=== PATIENT | male | born 1940 | race Two or more races ===

== ENCOUNTER 2017-05-07 06:00 | Outpatient (CLI) | payer OTHER ==
[~2017-05-07] VITALS: Ht 175.3 cm; Wt 72.6 kg
[2017-05-07] MEDS ORDERED: LANTUS SOL100 UNIT/1 (11:29)
[2017-05-07] MEDS ORDERED: COZAAR100 MG PO (11:29)
== END 2017-05-07 06:05 | disposition home or self-care (01) ==
LOC: LAB 06:00 → ADM 08:00 → EDSTATUS 08:00 → SURH 05-15 07:00 → EDSTATUS 05-15 08:00 → SURH 05-15 08:00
DX: Z01.812 Encounter for preprocedural laboratory examination (principal); Z01.810 Encounter for preprocedural cardiovascular examination; M17.12 Unilateral primary osteoarthritis, left knee

== ENCOUNTER 2017-09-04 15:02 | Outpatient (CLI) | payer OTHER ==
[~2017-09-04 15:02] MED LIST: COZAAR100 MG PO; LANTUS SOL100 UNIT/1
== END 2017-09-04 15:10 | disposition home or self-care (01) ==
LOC: RAD 501 15:02
DX: M79.641 Pain in right hand (principal)

== ENCOUNTER 2018-08-27 13:26 | Outpatient (CLI) | payer OTHER | END 2018-08-27 13:31 | disposition home or self-care (01) | LOC: RAD 501 13:26 | DX: M17.0 Bilateral primary osteoarthritis of knee (principal); M54.6 Pain in thoracic spine ==

== ENCOUNTER 2021-04-05 19:28 | Inpatient (IN) | payer OTHER ==
[~2021-04-05] VITALS: Ht 177.8 cm; Wt 72.6 kg
--- NOTE | 2021-04-05 19:42 | NUR ---
SE LLAMA PACIENTE Y NO RESPONDE
--- NOTE | 2021-04-05 20:01 | NUR ---
PTE ALERTA Y ORIENTADO X 3 ESFERAS RECIBIDO EN AMBULANCIA CON PARAMEDICOS SIN FAMILIAR.REFIERE DOLOR ABDOMINAL Y VOMITOS X2 DESDE ESTA MANANA,REFIERE DEBILIDAD.PARAMEDICOS CANALIZAN PTE EN BRAZO RT #22 Y LE ADMINISTRAN 500ML NSS.SE UBICA EN SLIM CON BARANDAS ELEVADAS.
--- NOTE | 2021-04-05 21:49 | NUR ---
PACIENTE EVALUADO POR EL QUIEN ORDENA TRATAMIENTO. SE ORIENTA A PACIENTE SOBRE EL MISMO VJ REFIERE ENTENDER. SE REALIZAN MUESTRAS DE LABORATORIO BAJO MEDIDAS ASEPTICAS Y SE ADMINISTRAN MEDICAMENTOS JANINE ORDEN MEDICA. SE NOTIFICA A PERSONAL DE TERAPIA PARA ABG.
--- NOTE | 2021-04-06 00:55 | NUR ---
MS MCKEON REALIZA B/C Y ADMINISTRA MEDICAMENTOS BAJO MEDIDAS ASEPTICAS POR ORDEN MEDICA. SE LE ENTREGA PTE CONTRASTE PO PARA ESTUDIO PENDIENTE Y SE LE ORIENTA SOBRE PROCEDIMIENTO DEL MISMO, PTE REFIERE ENTENDER LO DISCUTIDO. SE LLAMA A PERSONAL DE NA X PARA PLACA PORTABLE PENDIENTE.
== END 2021-04-08 14:20 | disposition designated cancer center or children's hospital (05) | DRG 689 ==
LOC: ER 19:28 → ICU-2 04-06 11:04 → ICU 04-06 19:05
PROVIDERS: ADMIT Internal Medicine; ATTEND Internal Medicine
PROC: B24BZZZ Ultrasonography of Heart with Aorta (ICD-10-PCS; principal; 2021-04-06)
PROC: BW21YZZ Computerized Tomography (CT Scan) of Abdomen and Pelvis using Other Contrast (ICD-10-PCS; 2021-04-06)
DX: N39.0 Urinary tract infection, site not specified (principal); E11.10 Type 2 diabetes mellitus with ketoacidosis without coma; I21.4 Non-ST elevation (NSTEMI) myocardial infarction; I25.10 Atherosclerotic heart disease of native coronary artery without angina pectoris; Z79.4 Long term (current) use of insulin; R07.89 Other chest pain; I10 Essential (primary) hypertension; Z20.822 Contact with and (suspected) exposure to COVID-19; R10.9 Unspecified abdominal pain